=== PATIENT | female | born 1950 | race Native Hawaiian/Other Pacific Islander ===

== ENCOUNTER 2016-09-13 10:39 | Outpatient (CLI) | payer OTHER | END 2016-09-13 19:12 | disposition home or self-care (01) | LOC: LABW 10:39 | DX: H16.223 Keratoconjunctivitis sicca, not specified as Sjogren's, bilateral (principal); K11.7 Disturbances of salivary secretion; M17.0 Bilateral primary osteoarthritis of knee; M19.041 Primary osteoarthritis, right hand; M19.042 Primary osteoarthritis, left hand | CPT/HCPCS: 36415; 85651; 86140 ==

== ENCOUNTER 2016-10-10 09:09 | Outpatient (CLI) | payer OTHER | END 2016-10-10 10:30 | disposition home or self-care (01) | LOC: MAMMO 09:09 → MRI 10:00 → MAMMO 10:30 | DX: Z12.31 Encounter for screening mammogram for malignant neoplasm of breast (principal); M23.232 Derangement of other medial meniscus due to old tear or injury, left knee; M23.231 Derangement of other medial meniscus due to old tear or injury, right knee | CPT/HCPCS: G0202-TC ==

== ENCOUNTER 2016-10-30 13:41 | Outpatient (CLI) | payer OTHER | END 2016-10-30 15:00 | disposition home or self-care (01) | LOC: MAMMO 13:41 | DX: R92.2 Inconclusive mammogram (principal) | CPT/HCPCS: G0206-TC ==

== ENCOUNTER 2017-05-22 05:38 | Inpatient (IN) | payer OTHER ==
[2017-05-22] VITALS (9 sets, daily range): BP systolic 103–173; BP diastolic 48–119; TEMP 97.5–98.1; Ht 165.1 cm; Wt 108.0 kg
[~2017-05-22] VITALS: Ht 165.1 cm; Wt 108.0 kg
[~2017-05-22 05:38] MED LIST: ALEN70TA19 PO; ALPR0.5T24 PO; AMBIEN5 MG PO; AMIT25TA22 PO; ATEN25TA21 PO; CLOPIDOGREL75 MG PO; CYCL10TA35 PO; DULOXETINE HCL30 MG PO; ESTR1TAB13 PO; FURO40TA93 PO; HYDR-3182 PO; K-TABS10 MEQ OR; LEVO0.0723 PO; LYRICA150 MG OR; MELOXICAM15 MG OR; PHENTERMINE37.5 MG OR; SIMV40TA57 OR; TIZA4TAB5 PO; TYLENOL #4 OR
[2017-05-22 06:38] LABS: PLATELET COUNT 269 K/uL (152-353)
[2017-05-22 06:47] LABS: POTASSIUM 3.9 mmol/L (3.6-5.2); SODIUM 138 mmol/L (136-145)
[2017-05-22 08:20] LABS: PARTIAL THROMBOPLASTIN TIME 27.1 SECONDS (24.5-33.6)
[2017-05-23] VITALS (8 sets, daily range): BP systolic 123–154; BP diastolic 57–119; TEMP 98.6–99.4
[2017-05-23 05:54] LABS: PLATELET COUNT 286 K/uL (152-353)
[2017-05-23 06:21] LABS: POTASSIUM 3.7 mmol/L (3.6-5.2); SODIUM 134 mmol/L (136-145)
== END 2017-05-23 11:03 | disposition short-term general hospital (02) | DRG 314 ==
LOC: ED 05:38 → MED/SURG 12:30 → ICU 05-23 08:03
PROVIDERS: Specialist
DX: I97.89 Other postprocedural complications and disorders of the circulatory system, not elsewhere classified (principal); J96.00 Acute respiratory failure, unspecified whether with hypoxia or hypercapnia; I26.99 Other pulmonary embolism without acute cor pulmonale; I82.411 Acute embolism and thrombosis of right femoral vein; E66.01 Morbid (severe) obesity due to excess calories; I10 Essential (primary) hypertension; R06.02 Shortness of breath
CPT/HCPCS: 36415; 36600; 80053; 81000; 82805; 83605; 83735; 85027; 85610; 85651; 85730; 93005; 94760; 96365; 96375; 99284; J1170; J1644; J1885; J2310; J2405; Q9963

== ENCOUNTER 2017-05-23 11:34 | Outpatient (CLI) | payer OTHER | END 2017-05-23 12:50 | disposition short-term general hospital (02) | LOC: AMB 11:34 | DX: I82.411 Acute embolism and thrombosis of right femoral vein (principal); E66.01 Morbid (severe) obesity due to excess calories; I10 Essential (primary) hypertension; R06.02 Shortness of breath | CPT/HCPCS: A0425; A0427 ==

== ENCOUNTER 2017-12-24 10:26 | Outpatient (CLI) | payer OTHER ==
[2017-12-24 10:51] LABS: POTASSIUM 3.8 mmol/L (3.6-5.2)
== END 2017-12-24 22:12 | disposition home or self-care (01) ==
LOC: LABW 10:26
PROVIDERS: Radiology Diagnostic Radiology
DX: I87.1 Compression of vein (principal)
CPT/HCPCS: 36415; 80048

== ENCOUNTER 2018-01-29 16:46 | Emergency (ER) | payer OTHER ==
[~2018-01-29] VITALS: Ht 165.1 cm; Wt 93.0 kg
[2018-01-29 17:00] VITALS: BP 127/65; TEMP 98.2
== END 2018-01-29 18:31 | disposition home or self-care (01) ==
LOC: ED 16:46
DX: M79.602 Pain in left arm (principal)
CPT/HCPCS: 99281

== ENCOUNTER 2019-09-22 13:51 | Outpatient (CLI) | payer OTHER | END 2019-09-22 21:37 | disposition home or self-care (01) | LOC: LABW 13:51 | DX: R50.9 Fever, unspecified (principal); R05 Cough | CPT/HCPCS: 87502 ==

== ENCOUNTER 2020-11-16 12:03 | Outpatient (CLI) | payer OTHER | END 2020-11-16 17:00 | disposition home or self-care (01) | LOC: LABW 12:03 | PROVIDERS: ATTEND Nurse Practitioner | DX: R05 Cough (principal) | CPT/HCPCS: 87070 ==

== ENCOUNTER 2021-09-27 13:02 | Outpatient (CLI) | payer OTHER ==
[2021-09-27 13:21] LABS: PLATELET COUNT 252 K/uL (152-353)
[2021-09-27 13:41] LABS: POTASSIUM 4.3 mmol/L (3.6-5.2)
== END 2021-09-27 19:34 | disposition home or self-care (01) ==
LOC: LABW 13:02 → MAMMO 13:30 → LABW 19:34
PROVIDERS: ATTEND Internal Medicine
DX: E78.49 Other hyperlipidemia (principal); E03.8 Other specified hypothyroidism; E55.9 Vitamin D deficiency, unspecified; E53.8 Deficiency of other specified B group vitamins; Z12.31 Encounter for screening mammogram for malignant neoplasm of breast; Z13.820 Encounter for screening for osteoporosis; N95.8 Other specified menopausal and perimenopausal disorders
CPT/HCPCS: 36415; 80053; 80061; 82306; 82607; 84439; 84443; 85027

== ENCOUNTER 2022-02-25 13:36 | Outpatient (CLI) | payer OTHER | END 2022-02-25 19:30 | disposition home or self-care (01) | LOC: CT 13:36 → RAD 13:36 → CT 19:30 | PROVIDERS: ATTEND Internal Medicine | DX: R51.9 Headache, unspecified (principal); M54.59 Other low back pain; M54.6 Pain in thoracic spine ==

== ENCOUNTER 2022-10-15 14:11 | Outpatient (CLI) | payer OTHER | END 2022-10-15 19:08 | disposition home or self-care (01) | LOC: RAD 14:11 | PROVIDERS: ATTEND Physician Assistant | DX: M25.511 Pain in right shoulder (principal); R07.89 Other chest pain ==

== ENCOUNTER 2023-07-10 09:51 | Outpatient (CLI) | payer OTHER | END 2023-07-10 19:28 | disposition home or self-care (01) | LOC: US 09:51 | PROVIDERS: ATTEND Nurse Practitioner | DX: R10.9 Unspecified abdominal pain (principal); Z12.31 Encounter for screening mammogram for malignant neoplasm of breast ==